=== PATIENT | male | born 1985 | race African-American/Black ===

== ENCOUNTER 2022-01-28 10:21 | Emergency (ER) | payer OTHER, SELFPAY ==
[2022-01-28 10:30] VITALS: BP 132/76; PULSE 70; RESP 16; TEMP 37.2; O2SAT 100
--- NOTE | 2022-01-28 11:00 | ED.GENADULT ---
HPI - General Adult General Chief complaint: Skin/Abscess/Foreign Body Stated complaint: Abcess on tailbone Source: patient Mode of arrival: ambulatory Limitations: no limitations History of Present Illness HPI narrative: Patient presents for evaluation of what he states is a painful abscess to his tailbone for last 2 days. He indicates he has intermittent symptoms in the affected area over the last few years. He has experienced 7/10 pain over the last 2 days, However he does have periods of time where increases to 9/10 in severity. No fever, chills, nausea, vomiting, drainage from the affected area. Pain is worse with sitting. States he has had adverse response to oxycodone and vicodin in the past. He is not diabetic. He smokes approximately 4 cigarettes per day. Related Data Allergies Allergy/AdvReac Type Severity Reaction Status Date / Time oxycodone Allergy Itching Verified 01/28/22 10:29 Review of Systems Review of Systems: CONSTITUTIONAL: Denies fever, chills, or sweats. EYES: Denies visual changes, redness, or discharge. ENT: Denies rhinorrhea, congestion, sore throat, or otalgia. CARDIOVASCULAR: Denies chest pain, palpitations, or edema. RESPIRATORY: Denies cough or dyspnea. GASTROINTESTINAL: Denies abdominal pain, nausea, vomiting, or diarrhea. GENITOURINARY: Denies dysuria or hematuria. SKIN: Reports painful ?abscess? to the tailbone. MUSCULOSKELETAL: Reports pain in the coccyx. NEUROLOGIC: Denies headache, numbness, dizziness, or weakness. PSYCHIATRIC: Denies anxiety or depression. PENDING SALE TO [facility] Past Medical History Medical History Pilonidal cyst Surgical History Surgical History No pertinent past surgical history Family History Family History Mother Family history non-contributory Social History Social History Smoking packs per day: 0.25 Smoking cigarettes per day: 5.0 Smoking status: Current every day smoker Alcohol intake: never Substance use: never Gender identity (if verbalized by the patient): Male Spiritual care concerns: No Exam Narrative: GENERAL: Well-appearing, well-nourished, and in no acute distress. HEAD: Normocephalic, atraumatic. EYES: PERRLA and EOMI. ENT: Nares clear, no rhinorrhea or epistaxis. Mucous membranes moist. Oropharynx without tonsillar hypertrophy exudate or other lesions. Bilateral TMs pearly hardy nonbulging NECK: Supple. No adenopathy or masses. No carotid bruits or JVD CHEST: Clear to auscultation. No respiratory distress. No wheezes rales or rhonchi HEART: Regular rate and rhythm. No murmur heard. Normal peripheral pulses. ABDOMEN: Soft, nontender, nondistended, normal active bowel sounds. EXTREMITIES: Normal range of motion. No edema. SKIN: There is an approximately 3 cm area of induration overlying the coccyx without associated fluctuance NEURO: No focal deficits. Alert and oriented x3. PSYCH: Normal mood and affect. Course Course Emergency Course: This is a 36-year-old male who presented for evaluation of pain and swelling in the coccyx. Exam is consistent with infected pilonidal cyst. There is no fluctuance to suggest that this is a drainable fluid collection. Will treat with Bactrim and Keflex. He has responded well in the past tramadol so he was given a paper prescription as I was not able to e-scribe it. Follow-up outpatient for further evaluation treatment go to the ER for systemic signs of infection. Patient in agreement with plan of care. Level of Care: Express Care Visit Vital Signs Vital signs: Vital Signs Temperature 37.2 C 01/28/22 10:30 Pulse Rate 70 01/28/22 10:30 Respiratory Rate 16 01/28/22 10:30 Blood Pressure 132/76 01/28/22 10:30 Pulse Oximetry 100 01/28/22 10:30
== END 2022-01-28 11:04 | disposition home or self-care (01) ==
PROVIDERS: Emergency Provider Nurse Practitioner
DX: L05.91 Pilonidal cyst without abscess (principal); F17.210 Nicotine dependence, cigarettes, uncomplicated
CPT/HCPCS: 99213; G0463

== ENCOUNTER 2022-08-05 18:57 | Emergency (ER) | payer OTHER, SELFPAY ==
[2022-08-05 19:04] VITALS: BP 130/80; PULSE 142; RESP 18; TEMP 37.6; O2SAT 96
--- NOTE | 2022-08-05 20:40 | ED.GENADULT ---
HPI - General Adult General Chief complaint: Skin/Abscess/Foreign Body Stated complaint: Skin Sore Source: patient Mode of arrival: ambulatory Limitations: no limitations History of Present Illness HPI narrative: Patient presents for evaluation of an abscess to his right buttock. Symptom onset 3 days ago. He initially had a small amount of swelling in the right buttock but swelling increased over the last few days. He indicates around 1830 this evening he noted purulence drainage from the area. No fever, chills, nausea, vomiting. He is not diabetic. He indicates since the time that the wound began draining, he has experienced relief in his pain level. He has had other abscess formations in the past but never in right buttock. He has allergies to several analgesics. Related Data Home Medications Medication Instructions Recorded Confirmed No Home Medications 08/05/22 08/05/22 Allergies Allergy/AdvReac Type Severity Reaction Status Date / Time naproxen [From Aleve] Allergy Itching Verified 08/05/22 19:32 oxycodone Allergy Itching Verified 08/05/22 19:10 Review of Systems Review of Systems: CONSTITUTIONAL: Denies fever, chills, or sweats. EYES: Denies visual changes, redness, or discharge. ENT: Denies rhinorrhea, congestion, sore throat, or otalgia. CARDIOVASCULAR: Denies chest pain, palpitations, or edema. RESPIRATORY: Denies cough or dyspnea. GASTROINTESTINAL: Denies abdominal pain, nausea, vomiting, or diarrhea. GENITOURINARY: Denies dysuria or hematuria. SKIN: Reports swollen abscess to right buttock MUSCULOSKELETAL: Reports pain in the right buttock. Denies back pain, joint pain NEUROLOGIC: Denies headache, numbness, dizziness, or weakness. PSYCHIATRIC: Denies anxiety or depression. [facility] Past Medical History Medical History Pilonidal cyst Surgical History Surgical History No pertinent past surgical history Family History Family History Mother Family history non-contributory Social History Social History Smoking packs per day: 0.25 Smoking cigarettes per day: 5.0 Smoking status: Current every day smoker Alcohol intake: never Substance use: never Gender identity (if verbalized by the patient): Male Spiritual care concerns: No Exam Narrative: GENERAL: Well-appearing, well-nourished, and in no acute distress. HEAD: Normocephalic, atraumatic. EYES: PERRLA and EOMI. ENT: Nares clear, no rhinorrhea or epistaxis. Mucous membranes moist. Oropharynx without tonsillar hypertrophy exudate or other lesions. Bilateral TMs pearly hardy nonbulging NECK: Supple. No adenopathy or masses. No carotid bruits or JVD CHEST: Clear to auscultation. No respiratory distress. No wheezes rales or rhonchi HEART: Regular rate and rhythm. No murmur heard. Normal peripheral pulses. ABDOMEN: Soft, nontender, nondistended, normal active bowel sounds. EXTREMITIES: Normal range of motion. No edema. SKIN: There is swelling noted to right buttock with underlying fluctuance. There is active purulent drainage from right buttock. Warm, dry, no rash. NEURO: No focal deficits. Alert and oriented x3. PSYCH: Normal mood and affect. Course Course Emergency Course: This is a 36-year-old male who presented for evaluation of swelling and drainage from an abscess to the right buttock. After obtaining informed consent I made an incision to draining abscess. Moderate amount of sanguinous drainage obtained. Wound culture was obtained. I am concerned he has a deeper drainable fluid collection. He would likely benefit from CT imaging. I discussed recommendation for transfer to the emergency department for CT imaging. Patient was agreeable to this plan. I contacted [facility]
== END 2022-08-05 20:40 | disposition short-term general hospital (02) ==
PROVIDERS: Emergency Provider Nurse Practitioner
DX: L02.31 Cutaneous abscess of buttock (principal); F17.210 Nicotine dependence, cigarettes, uncomplicated
CPT/HCPCS: 10061; 87070; 87205; 99213; G0463

== ENCOUNTER 2022-10-10 12:48 | Emergency (ER) | payer OTHER, SELFPAY ==
[2022-10-10 12:56] VITALS: BP 143/73; PULSE 110; RESP 16; TEMP 36.6; O2SAT 100
--- NOTE | 2022-10-10 13:39 | ED.NECK ---
HPI - Neck Pain/Injury General Chief Complaint: Neck Pain/Injury Stated Complaint: pain left neck/ shoulder/chest History of Present Illness HPI Narrative: Pt is a 37 y/o male, presents to with left periscapular back pain that began around 4 weeks ago after lifting heavy objects, moving and purchasing a new bed frame, etc. He denies blunt injury or falls. He has pain that started mildly as stiffness but now, he has difficulty getting comfortable when lying down because of the pain. He has taken APAP a couple of times for pain and applied heat with minimal relief. He has no other associated symptoms and denies skin rashes or paresthesias. He is right hand dominant. Related Data Allergies Allergy/AdvReac Type Severity Reaction Status Date / Time naproxen [From Aleve] Allergy Itching Verified 08/05/22 19:32 oxycodone Allergy Itching Verified 08/05/22 19:10 Review of Systems Constitutional: Constitutional: Reports no additional constitutional complaints Musculoskeletal: Musculoskeletal: Reports no additional musculoskeletal complaints and Reports as per [facility] Past Medical History Medical History Pilonidal cyst Surgical History Surgical History No pertinent past surgical history Family History Family History Mother Family history non-contributory Social History Social History Smoking packs per day: 0.25 Smoking cigarettes per day: 5.0 Smoking status: Current every day smoker Alcohol intake: never Substance use: never Gender identity (if verbalized by the patient): Male Spiritual care concerns: No Exam Const: General: healthy appearing, no acute distress and alert Nutritional Appearance: well nourished Orientation/consciousness: patient oriented x3 HENMT: Head: normal to inspection Ears: external ears normal Face and sinus: normal facial exam Mouth: Yes Normal oral and palatal mucosa present Teeth and gingiva: dentition normal Eyes: Conjunctivae: conjunctivae normal EOM: EOMs intact bilaterally Neck: Neck: normal visual inspection, no lymphadenopathy and no meningeal signs Chest: Chest palpation & inspection: normal inspection of the chest Resp: Effort & Inspection: normal respiratory effort Auscultation: clear to auscultation bilaterally Cardio: Rate: regular rate Rhythm: regular rhythm Back/Spine/Pelvis: Back: no CVA tenderness Other: pt has no C T or L spine point tenderness, no grossly abnormal curvature noted. THe left periscapular muscles are TTP along the lower margin of the scapula. Palpable spasm noted. ROM intact in the lUE. anterior chest is non TTP Skin: Rashes: no rashes Course Course Emergency Course: examination, consistent with periscapular back strain. Plan to treat with NSAIDs and muscle relaxant, FU with PCP, RICE the area, avoiding heat for 48 hours. Pt is agreeable with plan Level of Care: Express Care Visit ([id number]) Vital Signs Vital signs: Vital Signs Temperature 36.6 C 10/10/22 12:56 Pulse Rate 110 H 10/10/22 12:56 Respiratory Rate 16 10/10/22 12:56 Blood Pressure 143/73 H 10/10/22 12:56 Pulse Oximetry 100 10/10/22 12:56 Oxygen Delivery Room Air 10/10/22 12:56 Temperature 36.6 C 10/10/22 12:56 Pulse Rate 110 H 10/10/22 12:56 Respiratory Rate 16 10/10/22 12:56 Blood Pressure 143/73 H 10/10/22 12:56 Pulse Oximetry 100 10/10/22 12:56 Oxygen Delivery Room Air 10/10/22 12:56 MDM - Neck Pain/Injury MDM Narrative Medical decision making narrative: exam consistent with trigger point pain/strain. Plan to treat for muscle strain, RICE, NSAIDS and Robaxin, PCP FU Differential Diagnosis Differential diagnosis: Likely strain of neck muscle and other (subscapular bursitis )
== END 2022-10-10 13:50 | disposition home or self-care (01) ==
PROVIDERS: Emergency Provider Nurse Practitioner Family; PCP Internal Medicine
DX: M54.6 Pain in thoracic spine (principal); F17.210 Nicotine dependence, cigarettes, uncomplicated
CPT/HCPCS: 99213; G0463